=== PATIENT | male | born 1935 | race Caucasian/White ===

== ENCOUNTER 2021-07-11 18:00 | Inpatient (IN) ==
[2021-07-11] MEDS ORDERED: PIPERACILLIN/TAZOBACTAM 3,375 MG in SODIUM CHLORIDE 0.9% 100 ML IV STA (18:28)
[2021-07-11] MEDS ORDERED: NOREPINEPHRINE 4 MG/4 ML VIAL IV ONE (18:30)
[2021-07-11] MEDS ORDERED: SODIUM CHLORIDE 0.9% 1,000 ML IV STA ×2 (18:39→20:40)
[2021-07-11] MEDS: NOREPINEPHRINE 8 MG in SODIUM CHLORIDE 0.9% 242 ML IV PRN ×2 (18:40→23:54)
[2021-07-11 18:56] LABS: ABG Base Excess 12.8 MMOL/L (-2.5-2.5); ABG Oxygen Saturation 73.1 % (95-100); ABG PH 7.493 (7.35-7.45); ABG TCO2 33.7 MMOL/L (23-27)
[2021-07-11 18:57] LABS: ABG PO2 40.2 MM HG (80-95)
[2021-07-11] MEDS ORDERED: VANCOMYCIN INJ 1,000 MG in SODIUM CHLORIDE 0.9% 250 ML IV STA (19:16)
[2021-07-11 21:08] VITALS: BP 95/62
[2021-07-11] MEDS ORDERED: ETOMIDATE 20 MG/10 ML VIAL IV ONE ×2 (21:08→21:17)
[2021-07-11] MEDS ORDERED: SUCCINYLCHOLINE 200 MG/10 ML VIAL ONE (21:09)
[2021-07-11] MEDS ORDERED: ACETAMINOPHEN 325 MG TABLET PER TUBE PRN (21:14)
[2021-07-11] MEDS ORDERED: SUCCINYLCHOLINE 200 MG/10 ML VIAL IV ONE ×2 (21:14→21:35)
[2021-07-11] MEDS ORDERED: MIDAZOLAM 100 MG in SODIUM CHLORIDE 0.9% 80 ML IV PRN (21:14)
[2021-07-11] MEDS ORDERED: fentaNYL INJ 5,000 MCG in SODIUM CHLORIDE 0.9% 150 ML IV PRN (21:14)
[2021-07-11] MEDS ORDERED: ONDANSETRON 4 MG/2 ML VIAL IV PRN (21:14)
[2021-07-11] MEDS ORDERED: PANTOPRAZOLE 40 MG VIAL IV SCH (21:30)
[2021-07-11] MEDS ORDERED: ENOXAPARIN 30 MG/0.3 ML SYRINGE SUBCUT SCH (21:30)
[2021-07-11] MEDS ORDERED: MIDAZOLAM 2 MG/2 ML VIAL ONE (21:36)
[2021-07-11] MEDS ORDERED: HEPARIN/NACL 0.9% 2 UNITS/ML 1,000 UNIT/500 ML BAG IV ONE (21:38)
[2021-07-11] MEDS ORDERED: SODIUM CHLORIDE 0.9% 1,000 ML IV ONE (21:40)
[2021-07-11 21:57] LABS: Albumin 2.1 G/DL (3.4-5.0); Bilirubin,Total 0.7 MG/DL (0.20-1.00); Calcium 6.5 MG/DL (8.5-10.1); Potassium 3.8 MMOL/L (3.5-5.1); Total Protein 5.1 G/DL (6.4-8.2)
[2021-07-11] MEDS ORDERED: PHENYLEPHRINE 10 MG/1 ML VIAL IV ONE (22:14)
[2021-07-11] MEDS ORDERED: SODIUM BICARBONATE 50 MEQ/50 ML VIAL IV ONE ×6 (22:28→23:50)
[2021-07-11] MEDS ORDERED: PHENYLEPHRINE DRIP 40 MG/250 ML PREMIX IV ONE (22:40)
[2021-07-11] MEDS ORDERED: SEVOFLURANE 1 UNIT/15 MINUTE INH ONE ×2 (22:51)
[2021-07-11] MEDS ORDERED: CALCIUM CHLORIDE 1,000 MG/10 ML VIAL IV ONE (22:51)
[2021-07-11 23:08] LABS: ABG Base Excess 13.3 MMOL/L (-2.5-2.5); ABG HCO3 37.1 MMOL/L (20-26); ABG Oxygen Saturation 94.3 % (95-100); ABG PCO2 65.2 MM HG (35-48); ABG PO2 83.1 MM HG (80-95); ABG TCO2 36.5 MMOL/L (23-27)
[2021-07-11 23:11] LABS: Basophils % 0.7 % (0.0-0.8); Hematocrit 37.3 VOL% (42.0-52.0); Immature Granulocytes % 1.7 %; Immature Granulocytes Absolute 0.05 #; Lymphocytes # 0.3 10*3/uL (1.4-4.0); Lymphocytes % 9.4 % (21.2-54.2); Mean Corpuscular HGB Conc 32.2 GM/DL (32-36); Mean Corpuscular Volume 98.7 FL (87-102); Mean Platelet Volume 9.6 FL (9.6-12.0); NRBC # 0.04 10*3/uL; Neutrophils % 87.2 % (38.7-73.9); Platelet Count 224 T/CUMM (130-400); Red Blood Count 3.78 MC/CUMM (3.8-5.5); Red Cell Distribution Width 13.1 % (9.3-17.3); White Blood Count 2.9 T/CUMM (4-12)
[2021-07-11] MEDS: PHENYLEPHRINE DRIP 40 MG/250 ML PREMIX IV PRN (23:17)
[2021-07-11] MEDS ORDERED: DIGOXIN 0.5 MG/2 ML AMP IV ONE (23:25)
[2021-07-11 23:26] LABS: Albumin 1.7 G/DL (3.4-5.0); Bilirubin,Total 0.7 MG/DL (0.20-1.00); Calcium 7.2 MG/DL (8.5-10.1); Osmolality,Calculated 311.6 MOS/KG (273-304); Total Protein 4.1 G/DL (6.4-8.2)
[2021-07-11 23:26] LABS: INR 1.1; PT Patient Result 12.4 SECS (10.5-12.0); Partial Thromboplastin Time 29.1 SECS (23.9-33.8)
[2021-07-11] MEDS ORDERED: LACTATED RINGERS 1,000 ML IV ONE (23:56)
[2021-07-12] MEDS ORDERED: SODIUM BICARBONATE 50 MEQ/50 ML VIAL IV ONE
[2021-07-12] MEDS ORDERED: ALBUMIN 5% 12.5 GM/250 ML VIAL IV ONE ×2 (00:02)
[2021-07-12] MEDS ORDERED: POTASSIUM CHLORIDE RIDER 10 MEQ/100 ML PREMIX IV PRN (00:03)
[2021-07-12] MEDS ORDERED: VASOPRESSIN 100 UNITS in SODIUM CHLORIDE 0.9% 95 ML IV PRN (00:04)
[2021-07-12] MEDS ORDERED: DEXTROSE 50% 25 GM/50 ML VIAL IV PRN (00:08)
[2021-07-12] MEDS ORDERED: GLUCAGON 1 MG VIAL IM PRN (00:08)
[2021-07-12] MEDS ORDERED: DEXTROSE 50% 25 GM/50 ML VIAL IV ONE (00:08)
[2021-07-12] MEDS: HYDROCORTISONE 100 MG VIAL IV SCH ×2 (00:11→08:11)
[2021-07-12] MEDS ORDERED: PHENYLEPHRINE INJ 160 MG in SODIUM CHLORIDE 0.9% 234 ML IV PRN (00:34)
[2021-07-12 00:36] LABS: ABG Base Excess 10.7 MMOL/L (-2.5-2.5); ABG HCO3 34.3 MMOL/L (20-26); ABG Oxygen Saturation 93.1 % (95-100); ABG PCO2 57.7 MM HG (35-48); ABG PH 7.421 (7.35-7.45); ABG PO2 76.3 MM HG (80-95); ABG TCO2 33.3 MMOL/L (23-27); Glucose Heart Surgery 209 MG/DL (74-106); Hematocrit Heart Surgery 36.4 PERCENT (42-52); Hemoglobin Heart Surgery 11.8 G/DL (14.0-18.0); Potassium Heart/CVR 3.1 MMOL/L (3.5-5.1)
[2021-07-12] MEDS: POTASSIUM CHLORIDE RIDER 20 MEQ/100 ML PREMIX IV PRN ×2 (00:45→01:40)
[2021-07-12] MEDS: LACTATED RINGERS 1,000 ML IV SCH ×2 (01:00→09:45)
[2021-07-12] MEDS: PHENYLEPHRINE DRIP 40 MG/250 ML PREMIX IV PRN (01:06)
[2021-07-12] MEDS: NOREPINEPHRINE 16 MG in SODIUM CHLORIDE 0.9% 234 ML IV PRN ×3 (02:02→10:06)
[2021-07-12 02:10] LABS: Band Neutrophils 9 % (0-10); Hypochromasia Slight; Lymphocytes 7 % (20-55); Metamyelocytes 2 %; Myelocytes 1 %; Segmented Neutrophils 75 % (50-85); Total Cells Counted 100
[2021-07-12 02:11] LABS: Giant Platelets Few; Microcytosis Slight
[2021-07-12 02:31] LABS: ABG Base Excess 8.3 MMOL/L (-2.5-2.5); ABG Oxygen Saturation 77.1 % (95-100); ABG PCO2 57.6 MM HG (35-48); ABG PH 7.401 (7.35-7.45); ABG PO2 45.6 MM HG (80-95); ABG TCO2 36.7 MMOL/L (23-27)
[2021-07-12] MEDS ORDERED: PIPERACILLIN/TAZOBACTAM 3,375 MG in SODIUM CHLORIDE 0.9% 100 ML IV SCH (04:00)
[2021-07-12 04:40] LABS: Basophils % 0.7 % (0.0-0.8); Eosinophils % 0.2 % (0.00-10.9); Hemoglobin 13.3 GM/DL (14.0-18.0); Immature Granulocytes % 0.7 %; Immature Granulocytes Absolute 0.03 #; Lymphocytes # 0.2 10*3/uL (1.4-4.0); Lymphocytes % 5.2 % (21.2-54.2); Mean Corpuscular HGB Conc 30.9 GM/DL (32-36); Mean Corpuscular Volume 101.9 FL (87-102); Mean Platelet Volume 10.1 FL (9.6-12.0); Monocytes % 0.7 % (1.7-12.7); NRBC # 0.04 10*3/uL; Neutrophils % 92.5 % (38.7-73.9); Platelet Count 198 T/CUMM (130-400); Red Blood Count 4.22 MC/CUMM (3.8-5.5); Red Cell Distribution Width 13.3 % (9.3-17.3); White Blood Count 4.4 T/CUMM (4-12)
[2021-07-12 05:00] LABS: Albumin 1.8 G/DL (3.4-5.0); Bilirubin,Total 0.7 MG/DL (0.20-1.00); Calcium 6.6 MG/DL (8.5-10.1); Osmolality,Calculated 307.8 MOS/KG (273-304); Potassium 4.6 MMOL/L (3.5-5.1); Total Protein 4.1 G/DL (6.4-8.2)
[2021-07-12 05:15] LABS: Band Neutrophils 17 % (0-10); Lymphocytes 12 % (20-55); Myelocytes 1 %; Segmented Neutrophils 70 % (50-85); Total Cells Counted 100
[2021-07-12 05:16] LABS: Platelet Estimate Adequate
[2021-07-12 05:17] LABS: Hypochromasia Slight; Microcytosis Slight
[2021-07-12] MEDS ORDERED: SODIUM CHLORIDE 0.9% 1,000 ML IV ONE (06:09)
[2021-07-12] MEDS ORDERED: HEPARIN DRIP 25,000 UNITS/500 ML PREMIX IV SCH (07:00)
[2021-07-12] MEDS ORDERED: EPINEPHrine 1 MG/10 ML SYRINGE IV ONE (11:26)
== END 2021-07-12 11:27 | disposition expired | DRG 853 ==
LOC: N.ED 18:00 → N.EDINP 20:29 → SUATTDRO 20:29 → N.ICU 20:50
PROVIDERS: ADMIT Family Medicine; ATTEND Internal Medicine